=== PATIENT | male | born 1960 | race American Indian/Alaskan Native ===

== ENCOUNTER 2017-02-22 16:21 | Emergency (ER) | payer OTHER ==
[2017-02-22] MEDS ORDERED: ASPIRIN PO ONE (16:44)
[2017-02-22 17:22] LABS: Basophils % (Auto) 0.5 % (0.0-1.8); Eosinophils # (Auto) 0.4 K/mm3 (0.0-0.4); Eosinophils % (Auto) 4.7 % (0.0-4.3); Hematocrit 46.1 % (35.5-45.6); Hemoglobin 14.7 gm/dl (11.8-15.2); Lymphocytes # (Auto) 2.8 K/mm3 (1.2-5.4); Lymphocytes % (Auto) 34.9 % (13.4-35.0); Mean Corpuscular HGB Conc 32 % (32-34); Mean Corpuscular Hemoglobin 30 pg (28-32); Mean Corpuscular Volume 93 fl (84-94); Monocytes # (Auto) 0.7 K/mm3 (0.0-0.8); Monocytes % (Auto) 8.7 % (0.0-7.3); Platelet Count 238 K/mm3 (140-440); Red Blood Count 4.98 M/mm3 (3.65-5.03); Red Cell Distribution Width 14.2 % (13.2-15.2)
[2017-02-22 17:31] LABS: BUN/Creatinine Ratio 13; Blood Urea Nitrogen 14 mg/dL (9-20); Calcium 9.1 mg/dL (8.4-10.2); Hemolysis Index 19
--- NOTE | 2017-02-23 06:47 | Emergency Department Report ---
ED General Adult HPI - General Chief complaint: Chest Pain Stated complaint: HYPERTENSIVE Time Seen by Provider: 02/23/17 06:09 Source: patient Mode of arrival: Ambulatory Limitations: No Limitations - History of Present Illness Initial comments: Patient is a 56-year-old [place] male with a history of hypertension coming in because of elevated blood pressure. Patient states he has a throbbing in his ears. Blood pressure was 194/106 on arrival. Patient states he's had some very mild chest discomfort today stasis a heaviness. Patient denies shortness of breath exertional chest pain nausea vomiting diaphoresis at this time. Patient states his blood pressure medicines for proximal 4 months. Onset/Timin -: Gradual, week(s) Location: chest Radiation: non-radiation Severity scale (0 -10): 2 Quality: aching Consistency: constant, now resolved Improves with: none - Related Data Allergies Allergy/AdvReac Type Severity Reaction Status Date / Time No Known Allergies Allergy Unverified 02/22/17 16:44 ED Review of Systems ROS: Stated complaint: HYPERTENSIVE Other details as noted in HPI Comment: All other systems reviewed and negative ED Past Medical Hx - Past Medical History Hx Hypertension: Yes - Surgical History Past Surgical History?: No - Social History Smoking Status: Never Smoker Substance Use Type: None ED Physical Exam - General Limitations: No Limitations General appearance: alert, in no apparent distress - Head Head exam: Present: atraumatic, normocephalic - Eye Eye exam: Present: normal appearance - ENT ENT exam: Present: mucous membranes moist - Neck Neck exam: Present: normal inspection - Respiratory Respiratory exam: Present: normal lung sounds bilaterally. Absent: respiratory distress - Cardiovascular Cardiovascular Exam: Present: regular rate, normal rhythm. Absent: systolic murmur, diastolic murmur, rubs, gallop - GI/Abdominal GI/Abdominal exam: Present: soft, normal bowel sounds - Rectal Rectal exam: Present: deferred - Extremities Exam Extremities exam: Present: normal inspection - Back Exam Back exam: Present: normal inspection - Neurological Exam Neurological exam: Present: alert, oriented X3 - Psychiatric Psychiatric exam: Present: normal affect, normal mood - Skin Skin exam: Present: warm, dry, intact, normal color. Absent: rash ED Course Vital Signs 02/22/17 02/22/17 02/23/17 16:40 23:47 00:00 Temperature 98.3 F Pulse Rate 97 H 77 Respiratory 18 15 Rate Blood Pressure 194/106 190/109 190/109 O2 Sat by Pulse 96 Oximetry 02/23/17 02/23/17 02/23/17 00:03 00:04 00:15 Temperature Pulse Rate 79 71 Respiratory 24 18 22 Rate Blood Pressure 178/112 178/112 O2 Sat by Pulse Oximetry 02/23/17 00:30 Temperature Pulse Rate 79 Respiratory 22 Rate Blood Pressure 173/104 O2 Sat by Pulse Oximetry ED Medical Decision Making - Lab Data Result diagrams: 02/22/17 16:50 02/22/17 16:50 Lab Results 02/22/17 02/22/17 02/22/17 Range/Units 16:50 16:50 21:33 WBC 8.0 (4.5-11.0) K/mm3 RBC 4.98 (3.65-5.03) M/mm3 Hgb 14.7 (11.8-15.2) gm/dl Hct 46.1 H (35.5-45.6) % MCV 93 (84-94) fl MCH 30 (28-32) pg MCHC 32 (32-34) % RDW 14.2 (13.2-15.2) % Plt Count 238 (140-440) K/mm3 Lymph % (Auto) 34.9 (13.4-35.0) % Bailey % (Auto) 8.7 H (0.0-7.3) % Eos % (Auto) 4.7 H (0.0-4.3) % Baso % (Auto) 0.5 (0.0-1.8) % Lymph # 2.8 (1.2-5.4) K/mm3 Bailey # 0.7 (0.0-0.8) K/mm3 Eos # 0.4 (0.0-0.4) K/mm3 Baso # 0.0 (0.0-0.1) K/mm3 Seg Neutrophils % 51.2 (40.0-70.0) % Seg Neutrophils # 4.1 (1.8-7.7) K/mm3 Sodium 139 (137-145) mmol/L Potassium 4.0 (3.6-5.0) mmol/L Chloride 100.3 (98-107) mmol/L Carbon Dioxide 27 (22-30) mmol/L Anion Gap 16 mmol/L BUN 14 (9-20) mg/dL Creatinine 1.1 (0.8-1.5) mg/dL Estimated GFR > 60 ml/min BUN/Creatinine Ratio 13 % Glucose 133 H (75-100) mg/dL Calcium 9.1 (8.4-10.2) mg/dL Troponin T < 0.010 < 0.010 (0.00-0.029) ng/mL - EKG Data -: EKG Interpreted by Me EKG shows normal: sinus rhythm, axis (nl), intervals (nl), QRS complexes (nl), ST-T waves (nl) Rate: normal (94) - EKG Data Interpretation: no acute changes, normal EKG - Radiology Data Radiology results: report reviewed - Medical Decision Making Patient with asymptomatic elevated blood pressure. Patient's blood pressure is improved here in the emergency department. Patient discharged all with follow- up with cardiology Critical care attestation.: If time is entered above; I have spent that time in minutes in the direct care of this critically ill patient, excluding procedure time. ED Disposition Clinical Impression: Hypertension Disposition: DC-01 TO HOME OR SELFCARE Is pt being admited?: No Does the pt Need Aspirin: No Condition: Fair Instructions: Hypertension (ED) Referrals: PRIMARY CAREMD [Primary Care Provider] - 3-5 Days ALISSA CHAND MD [Staff Physician] - 3-5 Days
[2017-02-23 08:10] VITALS: BP 148/99
== END 2017-02-23 08:10 | disposition home or self-care (01) ==
LOC: ED 16:21
DX: I10 Essential (primary) hypertension (principal)
CPT/HCPCS: 36415; 80048; 84484; 85025; 93005; 93010; 99284